=== PATIENT | female | born 1945 | race Caucasian/White ===

== ENCOUNTER 2023-01-30 18:38 | Emergency (ER) | payer MEDICARE, OTHER ==
[~2023-01-30] VITALS: Ht 160 cm; Wt 73.9 kg
[2023-01-31 01:40] VITALS: BP 137/80
--- NOTE | 2023-01-31 17:43 | EKG ---
[facility] [address] [facility] [place] [address] Signed Atrial fibrillation Abnormal ECG No previous ECGs available Confirmed by RAVI AGGARWAL MD ([id number]) on 01/31/2023 5:43:43 PM Electronically Signed By: RAVI AGGARWAL MD 01/31/231742 PATIENT NAME: BERTHA HOLLIDAY ABDULLAHI KHAN Electrocardiogram DATE OF : 41 PHYSICIAN: RAVI AGGARAWL MD REPORT #: [id number] REPORT IS CONFIDENTIAL AND NOT TO BE RELEASED WITHOUT AUTHORIZATION
== END 2023-01-31 03:17 | disposition home or self-care (01) ==
LOC: ED 18:38
DX: D64.9 Anemia, unspecified (principal); I10 Essential (primary) hypertension; Z88.2 Allergy status to sulfonamides
CPT/HCPCS: 36415; 36430; 71045; 80053; 81003; 85018; 85025; 85027; 85610; 85730; 86850; 86900; 86901; 86922; 93005; 93010; 99284-25

== ENCOUNTER 2023-02-16 09:43 | Day surgery (SDC) | payer MEDICARE, OTHER ==
[~2023-02-16] VITALS: Ht 157.5 cm; Wt 74.1 kg
[~2023-02-16 09:43] MED LIST: AVAPRO75 MG PO; CAL MAG ZINC +1 EAC1 PO; CALCIUM500 MG PO; COCONUT OIL100 GM PO; DRAMAMINE25 M1 PO; ELIQUIS5 MG PO; HYDROCHLOROTH12.5 M1 PO; METOPROLOL SUC200 MG PO; MULTIPLE VITAM1 EAC2 PO
[2023-02-16 10:21] VITALS: BP 150/70
--- NOTE | 2023-02-16 12:51 | NUR ---
02/16/23 Jamal1 Marcela Mercer 9068-PATIENT ARRIVED TO PACU ON 0.5 L NC PLACED ON 2L RR EVEN. PATIENT AWAKE DENIES PAIN OR NAUSEA. ABDOMEN SOFT. PASSING GAS. IVF INFUSING. PATIENT REPORTS "FEET ARE SWOLLEN SINCE I STOPPED MEDICATION A WEEK AGO" PATIENT CLOSES EYES.
[2023-02-16 13:20] VITALS: BP 139/74
--- NOTE | 2023-02-18 11:23 | OR ---
[facility] [address] [place], [place] [address] Signed DATE OF OPERATION: 02/16/2023 SURGEON: Ana Cristina Nance MD PREOPERATIVE DIAGNOSES: 1. Anemia of uncertain etiology. 2. Recent rectal bleeding requiring transfusion. POSTOPERATIVE DIAGNOSES: 1. Hiatal hernia without associated lesion to account for anemia. 2. Extensive internal hemorrhoidal changes; small polyps of rectum and diverticulosis. PROCEDURES: 1. Esophagogastroduodenoscopy with biopsy. 2. Total colonoscopy to cecum with cold snare polypectomy x1, cold morcellation polypectomy x1 and biopsy of proximal internal hemorrhoidal change area. ANESTHESIA: Intravenous sedation; fentanyl 100 mcg and Versed 5 mg. INDICATION: This 77-year-old white woman is a patient of Dr. Elia Mehta, presented to the emergency room with a fair amount of rectal bleeding. Hematocrit was found to be 28. She was transfused 2 units of packed red cells. She is on Eliquis for atrial fibrillation. She has been withdrawn Eliquis anticipating colonoscopy and upper endoscopy today. She understands the risk of bleeding, infection, and perforation related to colonoscopy and upper endoscopy and wished to proceed. FINDINGS: Upper endoscopy showed a small hiatal hernia. No sign of lesion to account for actual hemorrhage. On colonoscopy, the prep was good. There were diverticular changes of the sigmoid and left colon. There were two small adenomatous polyps of the rectum and several small hyperplastic polyps as well. There were extensive hemorrhoidal changes which I believe most likely the source of her bleeding. DESCRIPTION OF PROCEDURE: The patient was brought to the endoscopy suite, given topical lidocaine, hypopharyngeal anesthesia and placed in lateral decubitus position. She was given intravenous sedation to the point of slurred speech and nystagmus. A bite block was placed. Olympus video upper endoscope was passed in the hypopharynx. Vocal cords were normal. Scope was Electronically Signed By: ANA CRISTINA NANCE MD 02/18/23 1123 PATIENT NAME: BERTHA HOLLIDAY OPERATIVE REPORT DATE OF : 41 REPORT #: [id number] PHYSICIAN: ANA CRISTINA NANCE MD PCP: ELIA MEHTA MD REPORT IS CONFIDENTIAL AND NOT TO BE RELEASED WITHOUT AUTHORIZATION [facility] [address] [place], [place] [address] Signed advanced to the esophagus, which was normal. Advancement to the stomach showed normal rugal folds. There was no sign of ulcer, lesion, neoplasm, or other problem. Pylorus was normal. Scope was passed through into the duodenum, which was normal. Biopsies were taken of the duodenum to assess for celiac disease and another putative cause of anemia. The scope was withdrawn and biopsies were taken of the antrum for both KEE and pathologic testing. Retroflexed view showed a small hiatal hernia. Scope was withdrawn and biopsies taken of the distal esophagus, though it appeared normal. There was no evidence of Gray's esophagus. The scope was withdrawn further. No other findings of concern. Additional sedation was given. Digital rectal examination performed showing no sign of abnormality. The Olympus video colonoscope was passed in the rectum and manipulated throughout the colon ultimately intubating the cecum itself. Ileocecal valve and appendiceal orifice were normal. Scope was withdrawn and there were no findings of concern into the left colon, multiple diverticula were once again seen. There was no sign of active bleeding or blood. In the proximal rectum, retroflexed view was undertaken confirming extensive internal hemorrhoidal changes. Further withdrawal showed two adenomatous polyps both, one excised with cold morcellation technique and the other with cold snare technique. Two small hyperplastic polyps were also seen and excised as well. The scope was removed and the patient was taken to the recovery room in good condition. CONCLUDING DIAGNOSIS: Bleeding and anemia, most likely related to internal hemorrhoids in conjunction with anticoagulation with Eliquis. PLAN: Recommend Metamucil one scoop p.o. daily. Not to restart Eliquis for at least three days given the biopsies and their location. If she should have recurrent bleeding, consideration will be made for hemorrhoidal banding in the office setting. MD WYATT Petty/MODL /[id number] cc: Elia Mehta MD Electronically Signed By: ANA CRISTINA NANCE MD 02/18/23 1123 PATIENT NAME: BERTHA HOLLIDAY OPERATIVE REPORT DATE OF : 41 REPORT #: [id number] PHYSICIAN: ANA CRISTINA NANCE MD PCP: ELIA MEHTA MD REPORT IS CONFIDENTIAL AND NOT TO BE RELEASED WITHOUT AUTHORIZATION [address] [address] Signed Copies: ELIA MEHTA DMD ~ Electronically Signed By: ANA CRISTINA NANCE MD 02/18/23 1123 PATIENT NAME: BERTHA HOLLIDAY ABDULLAHI ERIN OPERATIVE REPORT DATE OF : 41 REPORT #: [id number] PHYSICIAN: ANA CRISTINA NANCE MD PCP: ELIA MEHTA MD REPORT IS CONFIDENTIAL AND NOT TO BE RELEASED WITHOUT AUTHORIZATION
--- NOTE | 2023-02-20 14:38 | PATH ---
[facility] [address] [facility] [place], [place] [address] Signed SPECIMEN(S): A DUODENAL BIOPSY SPECIMEN(S): B ANTRUM/PYLORUS BIOPSY SPECIMEN(S): C LOWER ESOPHAGEAL BIOPSY SPECIMEN(S): D RECTAL POLYPS SPECIMEN(S): E RECTUM BIOPSY SPECIMEN SOURCE: A. DUODENAL BIOPSY B. ANTRUM/PYLORUS BIOPSY C. LOWER ESOPHAGEAL BIOPSY D. RECTAL POLYPS E. RECTUM BIOPSY CLINICAL HISTORY: GERD; melena; anemia. Post: Small hiatal hernia; internal hemorrhoids; diverticulosis FINAL PATHOLOGIC DIAGNOSIS: A. Duodenum, biopsies: - Benign duodenal mucosa, negative for significantly increased intraepithelial lymphocytosis and villous blunting. B. Antrum/pylorus, biopsies: - Benign antral and oxyntic-type gastric mucosa. - Negative for intestinal metaplasia. - Negative for Helicobacter pylori organisms on routine stain. C. Lower esophagus, biopsies: - Benign squamous epithelium. - Negative for acute inflammation, increased eosinophils, intestinal metaplasia and dysplasia. D. Rectal polyps, polypectomy: - Fragments of tubular adenoma and hyperplastic polyp. - Negative for high-grade dysplasia and malignancy. E. Rectum, biopsies: - Acute proctitis; see comment. COMMENT: The findings in Specimen E are non-specific, however, the differential diagnosis includes diverticulitis, medication effect, infectious causes, and less likely, inflammatory bowel disease. Please correlate with clinical impression. DDF:[id number] PATIENT NAME: SAMBERTHA Simental PATHOLOGY DATE OF : 41 REPORT #: [id number] PHYSICIAN: KAITLYNN CHI PCP: ELIA MEHTA MD REPORT IS CONFIDENTIAL AND NOT TO BE RELEASED WITHOUT AUTHORIZATION [facility] [address] [place], [place] [address] Signed MICROSCOPIC EXAMINATION: Histologic sections of all submitted blocks are examined by light microscopy. These findings, together with the gross examination, support the pathologic diagnosis. GROSS DESCRIPTION: A. The specimen, labeled and designated "Ansotegui, duodenal biopsy," is received in formalin and consists of two james soft tissue fragments, ranging from 0.2 to 0.3 cm. Entirely submitted in (A1). B. The specimen, labeled and designated "Ansotegui, antrum/pylorus biopsy," is received in formalin and consists of two james soft tissue fragments, ranging from 0.1 to 0.3 cm. Entirely submitted in (B1). C. The specimen, labeled and designated "Ansotegui, lower esophageal biopsy," is received in formalin and consists of two james soft tissue fragments, ranging from 0.3 to 0.4 cm. Entirely submitted in (C1). D. The specimen, labeled and designated "Ansotegui, rectal polyps," is received in formalin and consists of three james soft tissue fragments, ranging from 0.2 to 0.3 cm. Entirely submitted in (D1). E. The specimen, labeled and designated "Ansotegui, rectum biopsy," is received in formalin and consists of four james soft tissue fragments, ranging from 0.2 to 0.4 cm. Entirely submitted in (E1). VB (under the direct supervision of a pathologist) The Gross Description was prepared using a voice recognition system. The report was reviewed for accuracy; however, sound-alike word errors, addition and/or deletions may occur. If there is any question about this report, please contact Client Services. PERFORMING LABORATORY: The technical component was performed by [facility], [address] [place] [address] (CLIA# [id number]). Professional interpretation was performed by [facility], [facility], [address] [place] [address] (CLIA#: [id number]) Diagnostician: Fabiano Hernández DO Pathologist Electronically Signed 02/20/2023 PATIENT NAME: BERTHA HOLLIDAY PATHOLOGY DATE OF : 41 REPORT #: [id number] PHYSICIAN: KAITLYNN PATHOLOGY PCP: ELIA MEHTA MD REPORT IS CONFIDENTIAL AND NOT TO BE RELEASED WITHOUT AUTHORIZATION [facility] [address] [facility] [place], [place] [address] Signed Copies: ~ PATIENT NAME: BERTHA HOLLIDAY PATHOLOGY DATE OF : 41 REPORT #: [id number] PHYSICIAN: KAITLYNN CHI PCP: ELIA MEHTA MD REPORT IS CONFIDENTIAL AND NOT TO BE RELEASED WITHOUT AUTHORIZATION
== END 2023-02-16 13:35 | disposition home or self-care (01) ==
LOC: DS 09:43 → OPS 09:43 → DS 11:00 → OPS 13:35
PROVIDERS: ATTEND Surgery
PROC: 0DB38ZX Excision of Lower Esophagus, Via Natural or Artificial Opening Endoscopic, Diagnostic (ICD-10-PCS; 2023-02-16)
PROC: 0DBH8ZX Excision of Cecum, Via Natural or Artificial Opening Endoscopic, Diagnostic (ICD-10-PCS; 2023-02-16)
PROC: 0DBP8ZX Excision of Rectum, Via Natural or Artificial Opening Endoscopic, Diagnostic (ICD-10-PCS; 2023-02-16)
PROC: 0DB98ZX Excision of Duodenum, Via Natural or Artificial Opening Endoscopic, Diagnostic (ICD-10-PCS; principal; 2023-02-16 11:00)
PROC: 0DB78ZX Excision of Stomach, Pylorus, Via Natural or Artificial Opening Endoscopic, Diagnostic (ICD-10-PCS; 2023-02-16 11:00)
DX: D64.9 Anemia, unspecified (principal); D12.8 Benign neoplasm of rectum; K57.30 Diverticulosis of large intestine without perforation or abscess without bleeding; K62.89 Other specified diseases of anus and rectum; K44.9 Diaphragmatic hernia without obstruction or gangrene; K64.4 Residual hemorrhoidal skin tags; K64.8 Other hemorrhoids; J45.909 Unspecified asthma, uncomplicated; N18.30 Chronic kidney disease, stage 3 unspecified; K21.9 Gastro-esophageal reflux disease without esophagitis; I48.20 Chronic atrial fibrillation, unspecified; Z88.1 Allergy status to other antibiotic agents; Z88.2 Allergy status to sulfonamides; Z88.8 Allergy status to other drugs, medicaments and biological substances; Z79.899 Other long term (current) drug therapy; Z79.01 Long term (current) use of anticoagulants
CPT/HCPCS: 99153; G0500; J2250; J3010; J7121